=== PATIENT | female | born 1980 | race African-American/Black ===

== ENCOUNTER 2017-11-21 19:31 | Emergency (ER) | payer SELFPAY ==
[2017-11-21 19:43] VITALS: BP 135/80
[2017-11-21] MEDS ORDERED: ONDANSETRON 4 MG TAB.RAPDIS PO ONE (20:02)
[2017-11-21] MEDS ORDERED: IBUPROFEN 800 MG TABLET PO ONE (20:02)
[2017-11-21] MEDS ORDERED: ALBUTEROL SULFATE 0.083% NEB 2.5 MG/3 ML AMPUL NEB ONE (20:02)
--- NOTE | 2017-11-21 20:04 | ER Document Report ---
HPI - HPI Pain Level: 2 Context: Patient is a 37-year-old female presents emergency department with a chief complaint of headache, body aches, sinus congestion, nonproductive cough. Admits to history of asthma. Admits to multiple sick contacts at work. Otherwise tolerating p.o. without any difficulty. Admits to nausea without vomiting. Denies any abdominal pain, diarrhea constipation. Patient non-smoker Past Medical History - Social History Smoking Status: Never Smoker Family History: Reviewed & Not Pertinent Vertical Provider Document - CONSTITUTIONAL Agree With Documented VS: Yes Notes: PHYSICAL EXAM GENERAL: Alert, interacts well. HEAD: Normocephalic, atraumatic. EYES: Pupils equal, round, and reactive to light. Extraocular movements intact. ENT: Oral mucosa moist, tongue midline. NECK: Full range of motion. Supple. Trachea midline. LUNGS: Decreased air movement at the bases without significant wheezes, rales, or rhonchi. No respiratory distress. HEART: Regular rate and rhythm. No murmurs, gallops, or rubs. ABDOMEN: Soft, nondistended, nontender. No guarding, rebound, or rigidity.. Bowel sounds present in all 4 quadrants. EXTREMITIES: Moves all 4 extremities spontaneously. No edema, radial and dorsalis pedis pulses 2/4 bilaterally. No cyanosis. NEUROLOGICAL: Alert and oriented x4. Normal speech. PSYCH: Normal affect, normal mood. SKIN: Warm, dry, normal turgor. No rashes or lesions noted. - INFECTION CONTROL TRAVEL OUTSIDE OF THE [place] IN LAST 30 DAYS: No - RESPIRATORY O2 Sat by Pulse Oximetry: 100 Course - Re-evaluation Re-evalutation: 11/21/17 20:03 Patient presents with cough, nausea, body aches and fever at home consistent with a diagnosis of influenza. Patient is overall well in appearance, in no acute distress. Lung sounds clear. Able to tolerate oral intake without difficulty here in the emergency department. After risks and benefits conversation with the patient regarding the use of Tamiflu, they have elected to use supportive care without Tamiflu based on concerns about lack of efficacy as well as the side effect profile. At this time will discharge with return precautions and follow-up recommendations. Verbal discharge instructions given a the bedside and opportunity for questions given. Medication warnings reviewed. Patient is in agreement with this plan and has verbalized understanding of return precautions and the need for primary care follow-up in the next 24-72 hours. - Vital Signs Vital signs: Temp Pulse Resp BP Pulse Ox 98.5 F 77 20 135/80 H 100 11/21/17 19:42 11/21/17 19:42 11/21/17 19:42 11/21/17 19:42 11/21/17 19:42 Discharge - Discharge Clinical Impression: Flu-like symptoms Condition: Good Disposition: HOME, SELF-CARE Additional Instructions: You have influenza. There is no treatment that is effective for this diagnosis other than supportive care at home. This includes drinking plenty of fluids, using Tylenol or ibuprofen as needed for fever and discomfort, and Zofran as needed for nausea and vomiting. Please follow closely with you primary care physician the next 1-2 days regarding this diagnosis. Return to the emergency department immediately if you began to have persistent vomiting prevents you from being able to keep fluids down for more than 12 hours, you pass out, you began having difficulty breathing, you become confused, or you have any other symptoms that are worrisome to you. Prescriptions: Ondansetron [Zofran Odt 4 mg Tablet] 1 - 2 tab PO Q4H PRN #15 tab.rapdis PRN Reason: For Nausea/Vomiting Forms: Elevated Blood Pressure Referrals: [facility] [Provider Group] - Follow up in 1 week
[2017-11-21] MEDS ORDERED: ALBUTEROL SULFATE HFA (90 MCG/PUFF) 8 GM MDI (1 MDI/ER DISP) IH PRN (20:34)
== END 2017-11-21 21:01 | disposition home or self-care (01) ==
LOC: ER 19:31
DX: R51 Headache (principal); M79.1 Myalgia; R05 Cough; R11.0 Nausea
CPT/HCPCS: 94640; 99283; S0119; J3490

== ENCOUNTER 2018-07-03 18:04 | Emergency (ER) | payer SELFPAY ==
[2018-07-03] MEDS ORDERED: HYDROCODONE/ACETAMINOPHEN 5-325 MG TABLET PO ONE (19:07)
--- NOTE | 2018-07-03 19:12 | ER Document Report ---
HPI - HPI Patient complains to provider of: Left knee pain Onset: Yesterday Onset/Duration: Sudden Quality of pain: Achy Pain Level: 3 Context: Patient states she slipped on the floor and twisted her knee in one direction and then attempted to prevent herself from falling and twisted the knee in the opposite direction. Patient then fell on the ground. Patient complains of left knee tenderness. Exacerbated by: Standing, Movement, Walking Relieved by: Denies Similar symptoms previously: No Recently seen / treated by doctor: No - ROS ROS below otherwise negative: Yes Systems Reviewed and Negative: Yes All other systems reviewed and negative - CONSTITUTIONAL Constitutional: DENIES: Fever - NEURO Neurology: DENIES: Weakness - MUSCULOSKELETAL Musculoskeletal: REPORTS: Extremity pain - DERM Skin Color: Normal Skin Problems: None Past Medical History - General Information source: Patient - Social History Smoking Status: Never Smoker Frequency of alcohol use: None Drug Abuse: None Occupation: Medical office Lives with: Family Family History: Reviewed & Not Pertinent - Medical History Medical History: Negative Renal/ Medical History: Denies: Hx Peritoneal Dialysis Past Surgical History: Reports: Hx Section - x's 4, Hx Tonsillectomy Vertical Provider Document - CONSTITUTIONAL Agree With Documented VS: Yes Exam Limitations: No Limitations General Appearance: WD/WN, No Apparent Distress - INFECTION CONTROL TRAVEL OUTSIDE OF THE [place] IN LAST 30 DAYS: No - HEENT HEENT: Atraumatic, Normocephalic - NECK Neck: Normal Inspection - RESPIRATORY Respiratory: No Respiratory Distress - CARDIOVASCULAR Pulses: Normal: Dorsalis pedis - BACK Back: Normal Inspection - MUSCULOSKELETAL/EXTREMETIES Musculoskeletal/Extremeties: MAEW, Tender - Left knee joint tenderness to medial compartment and over anterior aspect of joint. No laxity with varus or valgus maneuvers. No obvious joint effusion, No Edema. negative: Eccymosis - NEURO Level of Consciousness: Awake, Alert, Appropriate Motor/Sensory: No Motor Deficit - DERM Integumentary: Warm, Dry, No Rash Course - Vital Signs Vital signs: Temp Pulse Resp BP Pulse Ox 98.5 F 69 16 139/90 H 100 07/03/18 18:20 07/03/18 18:20 07/03/18 18:20 07/03/18 18:20 07/03/18 18:20 - Diagnostic Test Radiology reviewed: Pending, Image reviewed Procedures - Immobilization Left Knee Pre-Proc Neuro Vasc Exam: Normal Immobilizer type: Knee immobilizer Performed by: PCT Post-Proc Neuro Vasc Exam: Normal Alignment checked and good: Yes Discharge - Discharge Clinical Impression: Left knee sprain Qualifiers: Encounter type: initial encounter Involved ligament of knee: unspecified ligament Qualified Code(s): S83.92XA - Sprain of unspecified site of left knee, initial encounter Condition: Stable Disposition: HOME, SELF-CARE Instructions: Use of Crutches ([facility]), Ice & Elevation ([facility]), Suspected Internal Knee Injury ([facility]), Knee Immobilizing Splint ([facility]), Sprained Knee ([facility]) Additional Instructions: Return immediately for any new or worsening symptoms Followup with your primary care provider, call tomorrow to make a followup appointment Weightbearing as tolerated Follow-up with orthopedics for any persistent pain or problems Forms: Return to Work Referrals: [facility] [Provider Group] - Follow up as needed
[2018-07-03] MEDS ORDERED: HYDROCODONE/ACETAMINOPHEN 5-325 MG (6 TAB/ER DISP) PO PRN (20:28)
[2018-07-03 20:42] VITALS: BP 159/92
--- NOTE | 2018-07-03 20:49 | RADIOLOGY REPORT (SQ) ---
EXAM DESCRIPTION: KNEE LEFT 4 VIEW COMPLETED DATE/TIME: 07/03/2018 8:23 pm REASON FOR STUDY: fall COMPARISON: None. EXAM PARAMETERS: NUMBER OF VIEWS: Four views. TECHNIQUE: AP, lateral and both oblique radiographic images acquired of the left knee. LIMITATIONS: None. FINDINGS: MINERALIZATION: Normal. BONES: No acute fracture or dislocation. No worrisome bone lesions. JOINTS: No effusion. SOFT TISSUES: No significant soft tissue swelling. No radiopaque foreign body. OTHER: No other significant finding. IMPRESSION: NO FRACTURE. TECHNICAL DOCUMENTATION: JOB ID: [id number] [place]-72 2010 [employer]- All Rights Reserved Reading location - IP/workstation name: [email or web address]
== END 2018-07-03 20:51 | disposition home or self-care (01) ==
LOC: ER 18:04
DX: S83.92XA Sprain of unspecified site of left knee, initial encounter (principal); M25.562 Pain in left knee; W01.0XXA Fall on same level from slipping, tripping and stumbling without subsequent striking against object, initial encounter
CPT/HCPCS: 99283; 73564; L1830

== ENCOUNTER 2018-11-09 21:41 | Emergency (ER) | payer OTHER ==
[2018-11-10] MEDS ORDERED: LIDOCAINE 1% INJ-PF (10 MG/ML) 30 ML SDV INJ ONE (01:43)
--- NOTE | 2018-11-10 01:46 | ER Document Report ---
ED Medical Screen (RME) - General Chief Complaint: Abscess Stated Complaint: POSSIBLE ABSCESS Time Seen by Provider: 11/10/18 01:37 Primary Care Provider: SCOTT NO MD [ÁLVARO DODD] - Follow up as needed JOJO HARDIN MD [ACTIVE STAFF] - Follow up as needed Notes: Patient is a 38-year-old female who presents emergency department with a chief complaint of an abscess to her right axilla area. She noticed it about a week ago. She has had some chills lately. Her daughter poked it and had been draining. She continues to have purulent drainage from the area. She states that she also feels there may be more than one in her axilla area. I have greeted and performed a rapid initial assessment of this patient. A comprehensive ED assessment and evaluation of the patient, analysis of test results and completion of medical decision making process will be conducted by an additional ED providers. TRAVEL OUTSIDE OF THE [place] IN LAST 30 DAYS: No - Related Data Allergies/Adverse Reactions: No Known Allergies Allergy (Verified 07/03/18 18:04) Past Medical History Renal/ Medical History: Denies: Hx Peritoneal Dialysis Past Surgical History: Reports: Hx Section - x's 4, Hx Tonsillectomy Physical Exam - Vital signs Vitals: Temp Pulse Resp BP Pulse Ox 99.0 F 80 18 141/64 H 99 11/09/18 22:05 11/09/18 22:05 11/09/18 22:05 11/09/18 22:05 11/09/18 22:05 - Skin Skin Temperature: Warm Location of irregularity: Other - Abscess to right axilla area Course - Vital Signs Vital signs: Temp Pulse Resp BP Pulse Ox 97.8 F 79 20 142/87 H 100 11/10/18 03:50 11/10/18 03:50 11/10/18 03:50 11/10/18 03:50 11/10/18 03:50 Doctor's Discharge - Discharge Clinical Impression: Hidradenitis axillaris Condition: Stable Disposition: HOME, SELF-CARE Instructions: Abscess ([facility]), Post Incision and Drainage Prescriptions: Clindamycin HCl 300 mg PO TID #21 capsule Referrals: SCOTT NO MD [PATIENT FLOW COORDINATOR] - Follow up as needed JOJO HARDIN MD [ACTIVE STAFF] - Follow up as needed
--- NOTE | 2018-11-10 02:36 | ER Document Report ---
ED Skin Rash/Insect Bite/Abscs - General Chief Complaint: Abscess Stated Complaint: POSSIBLE ABSCESS Time Seen by Provider: 11/10/18 01:37 Primary Care Provider: SCOTT NO MD [BIOMEDICAL ENGINEERING PROFESSOR] - Follow up as needed JOJO HARDIN MD [ACTIVE STAFF] - Follow up as needed Mode of Arrival: Ambulatory Information source: Patient Notes: 38-year-old female presents emergency department with complaints of multiple cysts in her right axilla. Patient states that it started about a week ago. She states that her daughter tried to open the abscess and drain it yesterday. She states that her daughter did get some purulent material from the abscess and it has been slowly draining today. Patient states that it feels like there is more than one abscess in the right axilla. She denies a history of MRSA. She has not been on any antibiotics recently. She denies any fever or chills. Tetanus is up-to-date. TRAVEL OUTSIDE OF THE [place] IN LAST 30 DAYS: No - HPI Patient complains to provider of: Tender/swollen area Onset: Last week Onset/Duration: Gradual, Persistent Quality of pain: Fullness Severity: Mild Skin Character: Abscess Skin Temperature: Warm Identify cause: No Exacerbated by: Denies Relieved by: Denies Similar symptoms previously: Yes Recently seen / treated by doctor: No - Related Data Allergies/Adverse Reactions: No Known Allergies Allergy (Verified 07/03/18 18:04) Past Medical History - General Information source: Patient - Social History Smoking Status: Never Smoker Family History: Reviewed & Not Pertinent Patient has suicidal ideation: No Patient has homicidal ideation: No Renal/ Medical History: Denies: Hx Peritoneal Dialysis Past Surgical History: Reports: Hx Section - x's 4, Hx Tonsillectomy Review of Systems - Review of Systems Constitutional: No symptoms reported EENT: No symptoms reported Cardiovascular: No symptoms reported Respiratory: No symptoms reported Gastrointestinal: No symptoms reported Genitourinary: No symptoms reported Musculoskeletal: No symptoms reported Skin: Lesions Neurological/Psychological: No symptoms reported -: Yes All other systems reviewed and negative Physical Exam - Vital signs Vitals: Temp Pulse Resp BP Pulse Ox 99.0 F 80 18 141/64 H 99 11/09/18 22:05 11/09/18 22:05 11/09/18 22:05 11/09/18 22:05 11/09/18 22:05 - Notes Notes: PHYSICAL EXAMINATION: GENERAL: Well-appearing, well-nourished and in no acute distress. HEAD: Atraumatic, normocephalic. EYES: Pupils equal round and reactive to light, extraocular movements intact, conjunctiva are normal. ENT: Nares patent, oropharynx clear without exudates. Moist mucous membranes. NECK: Normal range of motion, supple without lymphadenopathy LUNGS: Breath sounds clear to auscultation bilaterally and equal. No wheezes rales or rhonchi. HEART: Regular rate and rhythm without murmurs ABDOMEN: Soft, nontender, nondistended abdomen. No guarding, no rebound. No masses appreciated. Female : deferred Musculoskeletal: Normal range of motion, no pitting or edema. No cyanosis. NEUROLOGICAL: Cranial nerves grossly intact. Normal speech, normal gait. Normal sensory, motor exams PSYCH: Normal mood, normal affect. SKIN: Warm, Dry, normal turgor, multiple indurated nodules in the right axilla. Patient has blood coming from 1 of the nodules. Patient states that this is where her daughter tried to open it up. No erythema or warmth. Course - Re-evaluation Re-evalutation: 11/10/18 02:34 Patient has multiple areas of induration to the right axilla. No fluctuance. Patient requesting that the area that is draining blood which her daughter try to open yesterday be incised and drained. The abscess was incised and drained. Only bloody drainage. No purulent material. I will start the patient on antibiotics and have her follow-up with general surgery. I instructed the patient to take the medication prescribed as directed, to follow-up with her primary care physician and general surgeon this week, and to return for worsening symptoms. Patient is agreeable with plan of care. 11/10/18 02:41 - Vital Signs Vital signs: Temp Pulse Resp BP Pulse Ox 99.0 F 80 18 141/64 H 99 11/09/18 22:05 11/09/18 22:05 11/09/18 22:05 11/09/18 22:05 11/09/18 22:05 Procedures - Incision and Drainage Right Arm Type: Complex Anesthetic type: 1% Lidocaine I&D procedure: Shurclens applied Incision Method: Incision made by scalpel Amount/type of drainage: 0 Notes: 11/10/18 02:34 Only blood. No purulent drainage. Discharge - Discharge Clinical Impression: Hidradenitis axillaris Condition: Stable Disposition: HOME, SELF-CARE Instructions: Abscess ([facility]), Post Incision and Drainage Prescriptions: Clindamycin HCl 300 mg PO TID #21 capsule Referrals: JOJO HARDIN MD [ACTIVE STAFF] - Follow up as needed SCOTT NO MD [BIOMEDICAL ENGINEERING PROFESSOR] - Follow up as needed
[2018-11-10 03:52] VITALS: BP 142/87
== END 2018-11-10 03:51 | disposition home or self-care (01) ==
LOC: ER 21:41
DX: L73.2 Hidradenitis suppurativa (principal); L02.413 Cutaneous abscess of right upper limb
CPT/HCPCS: 99282; 10060; J3490

== ENCOUNTER 2019-05-27 11:41 | Emergency (ER) | payer OTHER ==
[2019-05-27] MEDS ORDERED: ASPIRIN 81 MG TABLET, CHEWABLE PO ONE (12:44)
--- NOTE | 2019-05-27 12:46 | ER Document Report ---
ED Medical Screen (RME) - General Chief Complaint: Shortness Of Breath Stated Complaint: SHORTNESS OF BREATH Time Seen by Provider: 05/27/19 12:39 Mode of Arrival: Ambulatory Information source: Patient Notes: 38-year-old female presents to ED for complaint of pedal edema bilaterally since Thursday. She states she is also been short of breath feeling heavy her chest feels heavy and has been getting worse since Thursday. She states she does have a history of anxiety but she is done all of her treatment she usually does for anxiety and it is continuing to get worse. Only other medical history is C- sections x4. She also had tonsils and adenoids removed. She does not drink smoke or do any drugs lives with her family works at a [employer]. Patient is alert oriented respirations regular and unlabored at this time full sentences and walks with a even steady gait. There is minimal pedal edema noted bilaterally. I have greeted and performed a rapid initial assessment of this patient. A comprehensive ED assessment and evaluation of the patient, analysis of test results and completion of medical decision making process will be conducted by an additional ED providers. TRAVEL OUTSIDE OF THE [place] IN LAST 30 DAYS: No - Related Data Allergies/Adverse Reactions: No Known Allergies Allergy (Verified 05/27/19 11:58) Past Medical History - Social History Chew tobacco use (# tins/day): No Frequency of alcohol use: None Drug Abuse: None Renal/ Medical History: Denies: Hx Peritoneal Dialysis Past Surgical History: Reports: Hx Section - x's 4, Hx Tonsillectomy Physical Exam - Vital signs Vitals: Temp Pulse Resp BP Pulse Ox 98.2 F 67 16 161/71 H 99 05/27/19 12:06 05/27/19 12:06 05/27/19 12:06 05/27/19 12:06 05/27/19 12:06 Course - Vital Signs Vital signs: Temp Pulse Resp BP Pulse Ox 98.2 F 67 16 161/71 H 99 05/27/19 12:06 05/27/19 12:06 05/27/19 12:06 05/27/19 12:06 05/27/19 12:06
--- NOTE | 2019-05-27 13:44 | RADIOLOGY REPORT (SQ) ---
EXAM DESCRIPTION: CHEST 2 VIEWS COMPLETED DATE/TIME: 05/27/2019 1:36 pm REASON FOR STUDY: chest heavy, short of breath pedal edema COMPARISON: 01/14/2018 EXAM PARAMETERS: NUMBER OF VIEWS: two views TECHNIQUE: Digital Frontal and Lateral radiographic views of the chest acquired. RADIATION DOSE: NA LIMITATIONS: none FINDINGS: LUNGS AND PLEURA: No opacities, masses or pneumothorax. No pleural effusion. MEDIASTINUM AND HILAR STRUCTURES: No masses or contour abnormalities. HEART AND VASCULAR STRUCTURES: Heart is enlarged. There is mild central vascular prominence. Slight cephalization of vessels. BONES: No acute findings. HARDWARE: None in the chest. OTHER: No other significant finding. IMPRESSION: Cardiomegaly and mild vascular congestion. Similar findings were noted in January. TECHNICAL DOCUMENTATION: JOB ID: [id number] [employer]- All Rights Reserved Reading location - IP/workstation name: [email or web address]
[2019-05-27 13:45] LABS: APPEARANCE,URINE SLIGHTLY-CLOUDY; BILIRUBIN,URINE NEGATIVE (NEGATIVE); COLOR,URINE YELLOW; GLUCOSE, URINE NEGATIVE (NEGATIVE); KETONES,URINE NEGATIVE (NEGATIVE); LEUKOCYTE ESTERASE,URINE NEGATIVE (NEGATIVE); NITRITE,URINE NEGATIVE (NEGATIVE); PROTEIN,URINE NEGATIVE (NEGATIVE); URINE SPECIFIC GRAVITY 1.019
[2019-05-27 15:09] LABS: HEMATOCRIT 25.6 % (36.0-47.0); MEAN CORPUSCULAR HEMOGLOBIN 13.3 pg (27.0-33.4); MEAN CORPUSCULAR HGB CONC 26.3 g/dL (32.0-36.0); PLATELET COUNT 233 10^3/uL (150-450); RED BLOOD COUNT 5.07 10^6/uL (3.72-5.28); RED CELL DISTRIBUTION WIDTH 21.6 % (11.5-14.0); WHITE BLOOD COUNT 4.5 10^3/uL (4.0-10.5)
--- NOTE | 2019-05-27 15:15 | ER Document Report ---
ED General - General Mode of Arrival: Ambulatory TRAVEL OUTSIDE OF THE [place] IN LAST 30 DAYS: No <DELPHINE SEBASTIAN - Last Filed: 05/27/19 20:03> <WILTONYANDELETHAN - Last Filed: 05/28/19 04:48> - General Chief Complaint: Shortness Of Breath Stated Complaint: SHORTNESS OF BREATH Time Seen by Provider: 05/27/19 12:39 Primary Care Provider: JON BURKETT DO [ACTIVE STAFF] - Follow up in 1 week (for [facility] follow up) - [facility] Notes: 38-year-old female to the emergency department with complaints of progressively worsening exertional shortness of breath for the past 2 days. She states that she also has been noticing bilateral leg swelling. She states that when she gets up and walks around she feels acutely short of breath and has a hard time catching her breath. She states that this is never happened to her before. She does not have a history of hypertension or congestive heart failure. She does have a history of asthma as a child but has not had any asthma exasperations since she was 11. She does have a history of seasonal allergies for which she takes Xyzal or Claritin. She states that over the weekend she took Xyzal and was doing fine and for the work week she has been taking Claritin as it does not make her drowsy. She denies any other new symptoms such as fever, chills, cough, nausea, vomiting, diaphoresis. There is no family history of congestive heart failure. She does not smoke. She denies unilateral leg swelling or unilateral leg pain. She is not on oral contraceptives. She has not recently been immobilized. She has not been traveling. She denies a history of DVTs. (DELPHINE SEBASTIAN) - Related Data Allergies/Adverse Reactions: No Known Allergies Allergy (Verified 05/27/19 11:58) Past Medical History - General Information source: Patient - Social History Smoking Status: Never Smoker Chew tobacco use (# tins/day): No Frequency of alcohol use: None Drug Abuse: None Family History: Reviewed & Not Pertinent Patient has suicidal ideation: No Patient has homicidal ideation: No Renal/ Medical History: Denies: Hx Peritoneal Dialysis Past Surgical History: Reports: Hx Section - x's 4, Hx Tonsillectomy <DELPHINE SEBASTIAN - Last Filed: 05/27/19 20:03> Review of Systems - Review of Systems Constitutional: Malaise. denies: Chills, Diaphoresis, Fever EENT: No symptoms reported Cardiovascular: See HPI, Palpitations, Heart racing, Edema. denies: Chest pain, Dyspnea, Syncope, Dizziness, Lightheaded Respiratory: Short of breath. denies: Cough, Hurts to breathe, Sputum - Exertional shortness of breath, Stridor Gastrointestinal: denies: Abdominal pain, Diarrhea, Nausea, Vomiting Genitourinary: denies: Burning, Dysuria, Discharge Musculoskeletal: No symptoms reported Skin: No symptoms reported Hematologic/Lymphatic: No symptoms reported Neurological/Psychological: No symptoms reported -: Yes All other systems reviewed and negative <DELPHINE SEBASTIAN - Last Filed: 05/27/19 20:03> Physical Exam - Vital signs Interpretation: Hypertensive - General General appearance: Appears well, Alert In distress: None - HEENT Head: Normocephalic, Atraumatic Eyes: Normal Pupils: PERRL Ears: Normal External canal: Normal Tympanic membrane: Normal Sinus: Other - Positive allergic salute Nasal: Other - Boggy pale nasal mucosa Mouth/Lips: Normal Mucous membranes: Normal Pharynx: Normal Neck: Normal - Respiratory Respiratory status: No respiratory distress Chest status: Nontender Breath sounds: Normal. No: Decreased air movement, Rales, Rhonchi, Stridor, Wheezing Chest palpation: Normal - Cardiovascular Rhythm: Regular Heart sounds: Normal auscultation Murmur: No - Abdominal Inspection: Obese Distension: No distension Bowel sounds: Normal Tenderness: Nontender Organomegaly: No organomegaly - Back Back: Normal, Nontender - Neurological Neuro grossly intact: Yes Cognition: Normal Orientation: AAOx4 Consuelo Coma Scale Eye Opening: Spontaneous Dexter Coma Scale Verbal: Oriented Consuelo Coma Scale Motor: Obeys Commands Dexter Coma Scale Total: 15 Speech: Normal Motor strength normal: LUE, RUE, LLE, RLE Sensory: Normal - Psychological Associated symptoms: Normal affect, Normal mood - Skin Skin Temperature: Warm Skin Moisture: Dry Skin Color: Normal <DELPHINE SEBASTIAN - Last Filed: 05/27/19 20:03> - Vital signs Vitals: Temp Pulse Resp BP Pulse Ox 98.2 F 67 16 161/71 H 99 05/27/19 12:06 05/27/19 12:06 05/27/19 12:06 05/27/19 12:06 05/27/19 12:06 - General Notes: Patient initially presents in no acute distress and does not appear to be short of breath. However when I get her up and ambulate her she does become acutely short of breath. She has noted elevation in her heart rate when we walk. And she gets slightly breathy when we are talking. (DELPHINE SEBASTIAN) - Cardiovascular Notes: Bilateral 1+ pitting edema to the ankles (DELPHINE SEBASTIAN) Course - Laboratory Result Diagrams: 05/27/19 14:43 05/27/19 14:43 - Diagnostic Test Radiology reviewed: Image reviewed, Reports reviewed - EKG Interpretation by Me EKG shows normal: Sinus rhythm Rate: Normal Rhythm: NSR When compared to previous EKG there are: No significant change <DELPHINE SEBASTIAN - Last Filed: 05/27/19 20:03> - Laboratory Result Diagrams: 05/28/19 03:36 05/27/19 14:43 <ETHAN NAJERA - Last Filed: 05/28/19 04:48> - Re-evaluation Re-evalutation: 05/27/19 Rounded on patient after labs returned. Noted hemoglobin of 6.7. Very likely that her shortness of breath on exertion is related to her anemia. We will still get a CTA due to her bilateral leg edema. She does admit that she has been having heavier vaginal bleeding during her periods for the past several months. She states that she will use for super ultra tampons a day while she is having her period. She states that she just finished her period after 1 week ye . She has not seen an MULE OPERATOR for this heavy vaginal bleeding. She also admits that for the past 4 months she has been eating 4 to 5 cups of ice a day. I have ordered her 2 units of blood and will continue to monitor closely. Rounded on patient. She is doing well. Blood transfusion is about to start. I have discussed risk and benefits of transfusion. And she agrees with plan for transfusion. We will have her transfused 2 units and then will recheck a CBC 2 hours after transfusion. Monitor closely during that time. She has a negative CTA chest. Impression: Symptomatic anemia. Patient received 2 units of blood transfusion. Will start on iron. We will have her follow-up with [facility] for further evaluation for her menorrhagia. She agrees with the plan. (DELPHINE SEBASTIAN) 05/28/19 04:47 Transfusions have finally completed. Hemoglobin has increased from 6.7 to 8.2. This is not as high as I was hoping, however I discussed with patient, she has no current symptoms, and she is not currently bleeding (she stopped bleeding 2 days ago). She will take iron, she states she will follow close with MULE OPERATOR referral on Thursday, she states she will return if she worsens. This was discussed in detail. Stable at time of discharge. (ETHAN NAJERA) - Vital Signs Vital signs: Temp Pulse Resp BP Pulse Ox 98.2 F 99 14 132/72 H 100 05/28/19 02:01 05/28/19 02:01 05/28/19 04:10 05/28/19 03:01 05/28/19 04:10 - Laboratory Laboratory results interpreted by me: 05/27/19 05/27/19 05/27/19 12:55 14:43 14:43 Hgb 6.7 L Hct 25.6 L MCV 51 L MCH 13.3 L MCHC 26.3 L RDW 21.6 H Monocytes % (Manual) 1 L Abs Monocytes (Manual) 0.0 L Creatinine 0.51 L NT-Pro-B Natriuret Pep Urine Blood MODERATE H Urine Urobilinogen 2.0 H Crossmatch 05/27/19 05/27/19 05/28/19 14:43 17:03 03:36 Hgb 8.2 L Hct 29.3 L MCV 56 L D MCH 15.6 L MCHC 28.0 L RDW 30.4 H Monocytes % (Manual) Abs Monocytes (Manual) Creatinine NT-Pro-B Natriuret Pep 279 H Urine Blood Urine Urobilinogen Crossmatch See Detail - EKG Interpretation by Me Additional EKG results interpreted by me: 05/27/19 15:16 No STEMI. Normal axis. No evidence of LVH. Mild T wave abnormalities in leads III and aVFthese are unchanged from prior. No significant changes from prior. (DELPHINE SEBASTIAN) Discharge <DELPHINE SEBASTIAN - Last Filed: 05/27/19 20:03> <SHAYY NAJERAAN - Last Filed: 05/28/19 04:48> - Discharge Clinical Impression: Shortness of breath Anemia Qualifiers: Anemia type: iron deficiency Iron deficiency anemia type: chronic blood loss Qualified Code(s): D50.0 - Iron deficiency anemia secondary to blood loss (chronic) Condition: Stable Disposition: HOME, SELF-CARE Instructions: Anemia, Iron Deficiency ([facility]) Additional Instructions: Take iron as prescribed. Follow-up with MULE OPERATOR for further evaluation for heavy periods. Return immediately if any worsening symptoms to include worsening shortness of breath, chest pain, passing out, fever. Prescriptions: Ferrous Sulfate 324 mg PO DAILY #30 tablet. Referrals: JON BURKETT DO [ACTIVE STAFF] - Follow up in 1 week (for [facility] follow up)
[2019-05-27 15:16] LABS: ALBUMIN 3.8 g/dL (3.5-5.0); ALKALINE PHOSPHATASE 79 U/L (38-126); ANION GAP 7 (5-19); ASPARTATE AMINO TRANSFERASE 18 U/L (14-36); BILIRUBIN,DIRECT 0.3 mg/dL (0.0-0.4); BILIRUBIN,TOTAL 0.3 mg/dL (0.2-1.3); BLOOD UREA NITROGEN 10 mg/dL (7-20); CALCIUM 9.4 mg/dL (8.4-10.2); CARBON DIOXIDE 26 mmol/L (22-30); CHLORIDE 106 mmol/L (98-107); CREATINE KINASE 73 U/L (30-135); GLUCOSE 83 mg/dL (75-110); TOTAL PROTEIN 7.4 g/dL (6.3-8.2)
[2019-05-27 15:25] LABS: NT PRO BNP 279 pg/mL (<125)
[2019-05-27 15:27] LABS: CREATINE KINASE MB < 0.22 ng/mL (<4.55)
[2019-05-27 15:37] LABS: HEMOGLOBIN 6.7 g/dL (12.0-15.5)
[2019-05-27 15:47] LABS: ABSOLUTE LYMPHOCYTES# (MANUAL) 1.8 10^3/uL (0.5-4.7); ANISOCYTOSIS 3+; BASOPHILS % (MANUAL) 0 % (0-2); EOSINOPHILS % (MANUAL) 5 % (0-6); HYPOCHROMASIA 3+; LYMPHOCYTES % (MANUAL) 40 % (13-45); MONOCYTES % (MANUAL) 1 % (3-13); SEGMENTED NEUTROPHILS % (MAN) 54 % (42-78); TOTAL CELLS COUNTED 100
[2019-05-27 15:48] LABS: MEAN CORPUSCULAR VOLUME 51 fl (80-97); PLATELET COMMENT ADEQUATE
[2019-05-27] MEDS ORDERED: NORMAL SALINE 250 ML IV PRN ×2 (16:04)
--- NOTE | 2019-05-27 17:51 | RADIOLOGY REPORT (SQ) ---
EXAM DESCRIPTION: CTA CHEST COMPLETED DATE/TIME: 05/27/2019 4:42 pm REASON FOR STUDY: exertional dyspnea COMPARISON: None. TECHNIQUE: CT scan of the chest performed using helical scanning technique with dynamic intravenous contrast injection. Images reviewed with lung, soft tissue and bone windows. Reconstructed coronal and sagittal MPR images reviewed. Additional 3 dimensional post-processing performed to develop Maximal Intensity Projection images (AR P). All images stored on PACS. All CT scanners at this facility use dose modulation, iterative reconstruction, and/or weight based d osing when appropriate to reduce radiation dose to as low as reasonably achievable (ALARA). [facility]: Dose Right [facility]: CareDose [facility]: Dose Right [facility]: Teradose 4D [facility]: IMScouting CONTRAST TYPE AND DOSE: contrast/concentration: Isovue 350.00 mg/ml; Total Contrast Delivered: 68.0 ml; Total Saline Delivered: 80.0 ml Contrast bolus optimized for the pulmonary arteries. Not diagnostic for the aorta. RENAL FUNCTION: None required. The patient is less than 50 years old. RADIATION DOSE: CT Rad equipment meets quality standard of care and radiation dose reduction techniq ues were employed. CTDIvol: 15.6 - 23.5 mGy. DLP: 617 mGy-cm. . LIMITATIONS: None. FINDINGS: LUNGS AND PLEURA: No pneumothorax. No consolidation or pleural effusions. Minimal basila r subsegmental atelectasis. . AORTA AND GREAT VESSELS: No aneurysm. Contrast bolus not optimized for the aorta. HEART: No pericardial effusion. No significant coronary artery calcifications. PULMONARY ARTERIES: No emboli visualized in the main pulmonary arteries or the segmental branches. HILAR AND MEDIASTINAL STRUCTURES: No identified masses or abnormal nodes. HARDWARE: None in the chest. UPPER ABDOMEN: No significant findings. Limited exam. THYROID AND OTHER SOFT TISSUES: No masses. No adenopathy. BONES: No acute or significant finding. 3D MIPS: Confirm above findings. OTHER: No other significant finding. IMPRESSION: No emboli visualized in the main pulmonary arteries or the segmental branches. No consolidation or pleural effusions. Minimal basilar subsegmental atelectasis. . COMMENT: Quality ID # [id number]: Final reports with documentation of one or more dose reduction techniques (e.g., Automated exposure control, adjustment of the mA and/or kV according to patient size, use of iterative reconstruction technique) TECHNICAL DOCUMENTATION: JOB ID: [id number] [place]-72 2010 [employer]- All Rights Reserved Reading location - IP/workstation name: [email or web address]
[2019-05-27] MEDS ORDERED: ACETAMINOPHEN 325 MG TABLET PO ONE (21:22)
[2019-05-28] MEDS ORDERED: METOCLOPRAMIDE HCL INJ/PF 10 MG/2 ML SDV IV ONE (00:38)
[2019-05-28] MEDS ORDERED: METOCLOPRAMIDE HCL INJ/PF 10 MG/2 ML SDV ONE (00:40)
[2019-05-28 03:54] LABS: HEMATOCRIT 29.3 % (36.0-47.0); HEMOGLOBIN 8.2 g/dL (12.0-15.5); MEAN CORPUSCULAR HEMOGLOBIN 15.6 pg (27.0-33.4); PLATELET COUNT 216 10^3/uL (150-450); RED BLOOD COUNT 5.27 10^6/uL (3.72-5.28); RED CELL DISTRIBUTION WIDTH 30.4 % (11.5-14.0)
[2019-05-28 04:02] LABS: MEAN CORPUSCULAR VOLUME 56 fl (80-97)
[2019-05-28 04:22] LABS: ABSOLUTE LYMPHOCYTES# (MANUAL) 1.6 10^3/uL (0.5-4.7); ABSOLUTE MONOCYTES # (MANUAL) 0.2 10^3/uL (0.1-1.4); BASOPHILS % (MANUAL) 0 % (0-2); EOSINOPHILS % (MANUAL) 2 % (0-6); LYMPHOCYTES % (MANUAL) 31 % (13-45); MONOCYTES % (MANUAL) 4 % (3-13); SEGMENTED NEUTROPHILS % (MAN) 63 % (42-78); TOTAL CELLS COUNTED 100
[2019-05-28 04:23] LABS: ANISOCYTOSIS 4+; HYPOCHROMASIA 4+; PLATELET COMMENT ADEQUATE; POLYCHROMASIA 3+
[2019-05-28 04:24] LABS: TARGET CELLS 1+; TEAR DROP CELLS 1+
[2019-05-28 05:05] VITALS: BP 130/69
--- NOTE | 2019-05-28 19:07 | EKG REPORT ---
SEVERITY:- NORMAL ECG - SINUS RHYTHM : Confirmed by: Jacquie Saucedo MD 28-May-2019 19:06:01
[2019-05-30 11:11] LABS: PATH REVIEW PATHOLOGIST REVIEWED
== END 2019-05-28 05:00 | disposition home or self-care (01) ==
LOC: ER 11:41
DX: D50.0 Iron deficiency anemia secondary to blood loss (chronic) (principal); R06.02 Shortness of breath; M79.89 Other specified soft tissue disorders; R53.81 Other malaise; R00.2 Palpitations
CPT/HCPCS: 93005; 99285; 96374; 86900; 86901; 36415; 82553; 36430; 86850; 82550; 83690; 84703; 85025; 80053; 81001; 86920; 83880; 71046; 71275; 93010; P9016; J2765